=== PATIENT | female | born 1940 | race Caucasian/White ===

== ENCOUNTER 2024-05-21 03:27 | Inpatient (IN) | payer OTHER ==
[~2024-05-21] VITALS: Ht 157.5 cm; Wt 66.7 kg
[2024-05-21] MEDS ORDERED: ONDANSETRON HCL/PF 4 MG/2 ML VIAL ONE (03:45)
[2024-05-21] MEDS ORDERED: HYDROMORPHONE 1 MG/1 ML DISP.SYRIN ONE ×3 (03:46→08:17)
[2024-05-21] MEDS: IV NS 0.9% 1,000 ML BAG IV ONE (03:52)
[2024-05-21] MEDS: ONDANSETRON HCL/PF 4 MG/2 ML VIAL IVP ONE (03:52)
[2024-05-21] MEDS: HYDROMORPHONE INJ 2 MG/ML DISP.SYRIN IV ONE (03:52)
[2024-05-21 04:08] LABS: BASOPHILS # (AUTO) 0.1 K/uL (0.0-0.2); EOSINOPHILS # (AUTO) 0.6 K/uL (0.0-0.7); INR 0.95 (0.91-1.10); LYMPHOCYTES # (AUTO) 2.9 K/uL (0.8-4.8); PARTIAL THROMBOPLASTIN TIME 29.8 SEC (24.3-34.3); PROTHROMBIN TIME 10.1 SECS (9.2-11.1); WHITE BLOOD COUNT (AUTO) 9.7 K/uL (4.3-11.0)
[2024-05-21 04:15] LABS: ALBUMIN 3.9 g/dL (3.4-5.0); BILIRUBIN,DIRECT 0.1 mg/dL (0.0-0.2); BILIRUBIN,TOTAL 0.7 mg/dL (0.2-1.0); CALCIUM, SERUM 9.2 mg/dL (8.5-10.1); CREATININE 0.9 mg/dL (0.6-1.3); POTASSIUM 3.9 mmol/L (3.5-5.1); TOTAL PROTEIN, SERUM 7.5 g/dL (6.4-8.2)
[2024-05-21 04:19] LABS: EOSINOPHILS % (AUTO) 6.2 % (0.0-6.0); HEMATOCRIT 39 % (33-45); HEMOGLOBIN 13.4 g/dL (11.5-14.8); LYMPHOCYTES % (AUTO) 30.1 % (20.0-44.0); MEAN CORPUSCULAR HEMOGLOBIN 32 PG (26.0-33.0); MEAN CORPUSCULAR HGB CONC 34 g/dl (31.0-36.0); MEAN CORPUSCULAR VOLUME 93 fL (82-100); MONOCYTES # (AUTO) 0.5 K/uL (0.1-1.30); MONOCYTES % (AUTO) 5.6 % (2.0-12.0); NEUTROPHILS # (AUTO) 5.5 K/uL (1.8-8.9); NEUTROPHILS % (AUTO) 57.1 % (43.0-81.0); PLATELET COUNT (AUTO) 374 K/uL (150-450); RED BLOOD CELL COUNT(AUTO) 4.21 MIL/uL (4.0-5.2); RED CELL DISTRIBUTION WIDTH 13.7 % (11.5-15.0)
[2024-05-21] MEDS: HYDROMORPHONE 1 MG/1 ML DISP.SYRIN IV ONE (04:28)
[2024-05-21] MEDS: HYDROMORPHONE 1 MG/1 ML DISP.SYRIN IV STA (08:22)
[2024-05-21] MEDS ORDERED: HYDROMORPHONE 1 MG/1 ML DISP.SYRIN IV PRN (10:00)
[2024-05-21] MEDS ORDERED: MAG HYDROX/AL HYDROX/SIMETH 30 ML UDC PO PRN (10:00)
[2024-05-21] MEDS ORDERED: Z GUARD REMEDY 4 OZ OINT TP PRN (10:00)
[2024-05-21] MEDS ORDERED: MAGNESIUM HYDROXIDE 30 ML UDC PO PRN (10:00)
[2024-05-21] MEDS: IV NS 0.9% 1,000 ML IV PRN (11:03)
[2024-05-21 12:00] VITALS: BP 141/57; TEMP 98.2; O2SAT 97
[2024-05-21] MEDS: ACETAMINOPHEN 325 MG TABLET PO PRN (12:14)
[2024-05-21] MEDS: HYDROMORPHONE 1 MG/1 ML DISP.SYRIN IV PRN (13:30)
[2024-05-21 16:00] VITALS: BP 104/48; TEMP 97.9; O2SAT 95
[2024-05-21] MEDS ORDERED: DULO30CA52 PO (16:29)
[2024-05-21] MEDS ORDERED: NABU-139 PO (16:29)
[2024-05-21] MEDS ORDERED: OMEP20TA5 PO (16:29)
[2024-05-21] MEDS ORDERED: AMLO-212 PO (16:29)
[2024-05-21] MEDS ORDERED: GABA100C PO (16:29)
[2024-05-21] MEDS ORDERED: OLME20TA13 PO (16:29)
[2024-05-21] MEDS: ASPIRIN 325 MG TABLET PO SCH (18:48)
[2024-05-21] MEDS: CYCLOBENZAPRINE 10 MG TABLET PO PRN (18:48)
[2024-05-21 20:00] VITALS: BP 122/60; TEMP 98.1; O2SAT 94
[2024-05-21] MEDS: DOCUSATE SODIUM 250 MG CAPSULE PO SCH (22:31)
[2024-05-21] MEDS: ONDANSETRON HCL/PF 4 MG/2 ML VIAL IVP PRN (23:52)
[2024-05-22 06:58] LABS: BASOPHILS % (AUTO) 0.2 % (0.0-2.0); EOSINOPHILS # (AUTO) 0.1 K/uL (0.0-0.7); EOSINOPHILS % (AUTO) 0.8 % (0.0-6.0); HEMATOCRIT 34 % (33-45); HEMOGLOBIN 11.5 g/dL (11.5-14.8); LYMPHOCYTES # (AUTO) 0.9 K/uL (0.8-4.8); LYMPHOCYTES % (AUTO) 7.8 % (20.0-44.0); MEAN CORPUSCULAR HEMOGLOBIN 32 PG (26.0-33.0); MEAN CORPUSCULAR HGB CONC 34 g/dl (31.0-36.0); MEAN CORPUSCULAR VOLUME 94 fL (82-100); MONOCYTES # (AUTO) 0.8 K/uL (0.1-1.30); MONOCYTES % (AUTO) 6.7 % (2.0-12.0); NEUTROPHILS % (AUTO) 84.5 % (43.0-81.0); PLATELET COUNT (AUTO) 312 K/uL (150-450); RED BLOOD CELL COUNT(AUTO) 3.65 MIL/uL (4.0-5.2); WHITE BLOOD COUNT (AUTO) 11.9 K/uL (4.3-11.0)
[2024-05-22 07:21] LABS: CALCIUM, SERUM 9.1 mg/dL (8.5-10.1); CREATININE 0.5 mg/dL (0.6-1.3); PHOSPHORUS 4.1 mg/dL (2.5-4.9); POTASSIUM 4.2 mmol/L (3.5-5.1)
[2024-05-22 07:30] VITALS: BP 138/58; TEMP 98.8; O2SAT 99
[2024-05-22] MEDS ORDERED: NABUMETONE 500 MG TABLET PO PRN (09:30)
[2024-05-22] MEDS: AMLODIPINE BESYLATE 5 MG TABLET PO SCH (10:07)
[2024-05-22] MEDS: LOSARTAN POTASSIUM 50 MG TABLET PO SCH (10:07)
[2024-05-22 16:00] VITALS: BP 128/51; TEMP 97.5; O2SAT 94
[2024-05-22] MEDS: GABAPENTIN 100 MG CAPSULE PO SCH (16:18)
[2024-05-22 20:00] VITALS: BP 103/42; TEMP 97.3; O2SAT 96
[2024-05-22] MEDS: DULOXETINE HCL 30 MG CAPSULE.DR PO SCH (23:03)
[2024-05-23 01:59] VITALS: BP 143/68
[2024-05-23 06:37] LABS: BASOPHILS % (AUTO) 0.4 % (0.0-2.0); EOSINOPHILS # (AUTO) 0.3 K/uL (0.0-0.7); EOSINOPHILS % (AUTO) 2.4 % (0.0-6.0); HEMATOCRIT 32 % (33-45); HEMOGLOBIN 10.7 g/dL (11.5-14.8); LYMPHOCYTES # (AUTO) 1.3 K/uL (0.8-4.8); LYMPHOCYTES % (AUTO) 11.7 % (20.0-44.0); MEAN CORPUSCULAR HEMOGLOBIN 32 PG (26.0-33.0); MEAN CORPUSCULAR HGB CONC 34 g/dl (31.0-36.0); MEAN CORPUSCULAR VOLUME 94 fL (82-100); MONOCYTES % (AUTO) 8.5 % (2.0-12.0); NEUTROPHILS # (AUTO) 8.6 K/uL (1.8-8.9); PLATELET COUNT (AUTO) 277 K/uL (150-450); RED BLOOD CELL COUNT(AUTO) 3.41 MIL/uL (4.0-5.2); RED CELL DISTRIBUTION WIDTH 13.7 % (11.5-15.0); WHITE BLOOD COUNT (AUTO) 11.2 K/uL (4.3-11.0)
[2024-05-23 07:00] VITALS: BP 108/51; TEMP 98.6; O2SAT 98
[2024-05-23 07:06] LABS: CALCIUM, SERUM 8.4 mg/dL (8.5-10.1); CREATININE 0.5 mg/dL (0.6-1.3); POTASSIUM 4.3 mmol/L (3.5-5.1)
[2024-05-23] MEDS: PANTOPRAZOLE 40 MG TABLET.DR PO SCH (08:36)
[2024-05-23] MEDS ORDERED: HYDR-3976 PO (08:57)
[2024-05-23] MEDS ORDERED: LOSARTAN POTASSIUM 50 MG TABLET PO SCH (09:00)
[2024-05-23] MEDS ORDERED: AMLODIPINE BESYLATE 5 MG TABLET PO SCH (09:00)
[2024-05-23] MEDS: MAGNESIUM HYDROXIDE 30 ML UDC PO PRN (14:44)
[2024-05-23 16:00] VITALS: BP 127/77; TEMP 98.1; O2SAT 98
[2024-05-23 20:00] VITALS: BP 123/44; TEMP 98.2; O2SAT 99
[2024-05-24 08:00] VITALS: BP 85/72; TEMP 97.9; O2SAT 95
[2024-05-24] MEDS: BISACODYL SUPP (10 MG) 10 MG/SUPP.RECT SUPP.RECT RC PRN (14:54)
[2024-05-24 16:00] VITALS: BP 116/51; TEMP 98.1; O2SAT 96
[2024-05-24 20:00] VITALS: BP 117/41; TEMP 96; TEMP 97.9; TEMP 98.1; O2SAT 96
[2024-05-25 07:14] LABS: BASOPHILS % (AUTO) 0.2 % (0.0-2.0); EOSINOPHILS # (AUTO) 0.2 K/uL (0.0-0.7); EOSINOPHILS % (AUTO) 2.6 % (0.0-6.0); HEMATOCRIT 29 % (33-45); LYMPHOCYTES % (AUTO) 12.8 % (20.0-44.0); MEAN CORPUSCULAR HEMOGLOBIN 32 PG (26.0-33.0); MEAN CORPUSCULAR HGB CONC 35 g/dl (31.0-36.0); MEAN CORPUSCULAR VOLUME 93 fL (82-100); MONOCYTES # (AUTO) 0.7 K/uL (0.1-1.30); MONOCYTES % (AUTO) 9.4 % (2.0-12.0); NEUTROPHILS # (AUTO) 5.8 K/uL (1.8-8.9); PLATELET COUNT (AUTO) 344 K/uL (150-450); RED BLOOD CELL COUNT(AUTO) 3.09 MIL/uL (4.0-5.2); RED CELL DISTRIBUTION WIDTH 13.5 % (11.5-15.0); WHITE BLOOD COUNT (AUTO) 7.8 K/uL (4.3-11.0)
[2024-05-25 07:35] LABS: CREATININE 0.5 mg/dL (0.6-1.3); POTASSIUM 4.5 mmol/L (3.5-5.1)
[2024-05-25 08:00] VITALS: BP 133/51; TEMP 98.3; O2SAT 99
[2024-05-25 16:00] VITALS: BP 127/58; TEMP 98.2; O2SAT 100
== END 2024-05-25 17:09 | DRG 534 ==
LOC: ER 03:29 → MED 06:33
PROVIDERS: ADMIT Internal Medicine; ATTEND Internal Medicine
DX: S72.401A Unspecified fracture of lower end of right femur, initial encounter for closed fracture (principal); E87.1 Hypo-osmolality and hyponatremia; W18.2XXA Fall in (into) shower or empty bathtub, initial encounter; Y93.E1 Activity, personal bathing and showering; I10 Essential (primary) hypertension; E86.1 Hypovolemia; F32.9 Major depressive disorder, single episode, unspecified; Y92.002 Bathroom of unspecified non-institutional (private) residence as the place of occurrence of the external cause; E86.0 Dehydration; R26.9 Unspecified abnormalities of gait and mobility; M16.0 Bilateral primary osteoarthritis of hip; M17.0 Bilateral primary osteoarthritis of knee
CPT/HCPCS: 36415; 71045-TC; 72040-TC; 72125-TC; 72170-TC; 72192-TC; 73552; 73560-TC; 73564-TC; 80048-TC; 80076-TC; 83690-TC; 83735-TC; 84100-TC; 85025-TC; 85730-TC; 87081-TC; 92526; 92611-TC; 97110-TC; 97112-TC; 97530-TC; 97535-TC; A4223; G0378; J1171; J2405; J7030